=== PATIENT | female | born 1945 | race Caucasian/White ===

== ENCOUNTER 2023-10-10 10:03 | Outpatient (RCR) | payer OTHER, SELFPAY | END 2023-10-10 23:59 | disposition home or self-care (01) | LOC: RPT 10:03 | PROVIDERS: ATTENDING PHYSICIAN Urology; PRIMARYCARE PHYSICIAN Family Medicine | DX: N31.9 Neuromuscular dysfunction of bladder, unspecified (principal); N39.3 Stress incontinence (female) (male); N39.41 Urge incontinence; N30.10 Interstitial cystitis (chronic) without hematuria; Z73.6 Limitation of activities due to disability; R15.9 Full incontinence of feces; R33.9 Retention of urine, unspecified; M62.89 Other specified disorders of muscle | CPT/HCPCS: 97110; 97112; 97530 ==

== ENCOUNTER 2023-11-22 14:11 | Outpatient (RCR) | payer OTHER, SELFPAY | END 2023-11-22 23:59 | disposition home or self-care (01) | LOC: RPT 14:11 | PROVIDERS: ATTENDING PHYSICIAN Urology; PRIMARYCARE PHYSICIAN Family Medicine | DX: N31.9 Neuromuscular dysfunction of bladder, unspecified (principal); N39.3 Stress incontinence (female) (male); N39.41 Urge incontinence; N30.10 Interstitial cystitis (chronic) without hematuria; Z73.6 Limitation of activities due to disability; R15.9 Full incontinence of feces; R33.9 Retention of urine, unspecified; M62.89 Other specified disorders of muscle | CPT/HCPCS: 97530 ==

== ENCOUNTER → 2023-12-23 15:22 | Outpatient (REF) | payer OTHER, SELFPAY | LOC: HWRCS 15:22 | PROVIDERS: ATTENDING PHYSICIAN Family Medicine | DX: R60.0 Localized edema (principal); R06.09 Other forms of dyspnea | CPT/HCPCS: 93306 ==

== ENCOUNTER → 2024-01-02 10:42 | Outpatient (REF) | payer OTHER, SELFPAY ==
[2024-01-02 11:41] LABS: % Basophils 0.8 % (0-2); % Eosinophils 2.8 % (0-6); % Immature Granulocytes 0.1 % (0-0.5); % Lymphocytes 21.3 % (20.5-51.1); Absolute Basophils 0.1 10^3/uL (0-0.2); Absolute Eosinophils 0.2 10^3/uL (0-0.7); Absolute Lymphocytes 1.8 10^3/uL (1.2-3.4); Absolute Monocytes 0.5 10^3/uL (0.1-0.6); Absolute Neutrophils 5.8 10^3/uL (1.4-6.5); Hematocrit 34.9 % (37.0-47.0); Hemoglobin 11.2 g/dL (12.0-16.0); Mean Corp Hgb Conc. 32.1 g/dL (33.0-37.0); Mean Corpuscular Hgb 31.6 pg (27.0-31.0); Mean Corpuscular Volume 98.6 fL (81.0-99.0); Mean Platelet Volume 10.6 fL (7.4-10.4); Nucleated Red Blood Cells % 0 %; Platelet Count 364 10^3/uL (130-400); Red Blood Cell Count 3.54 10^6/uL (4.20-5.40); Red Cell Dist. Width 14.6 % (11.5-14.5); White Blood Cell Count 8.5 10^3/uL (4.8-10.8)
[2024-01-02 12:13] LABS: ALT (SGPT) 23 U/L (0-35); AST (SGOT) 25 U/L (14-36); Albumin 4.6 g/dl (3.5-5.0); Alkaline Phosphatase 51 U/L (38-126); Blood Urea Nitrogen 21 mg/dl (7-17); Calcium 9.3 mg/dl (8.4-10.2); Carbon Dioxide 23 mmol/L (22-30); Chloride 101 mmol/L (98-107); Glucose 96 mg/dl (70-99); Potassium 4.3 mmol/L (3.5-5.1); Sodium 135 mmol/L (135-145); Total Bilirubin 1.1 mg/dl (0.2-1.3); Total Protein 7.5 g/dl (6.3-8.2); eGFR > 60.00
[2024-01-02 12:16] LABS: NT-proBNP 61.7 pg/ml
[2024-01-03 16:10] LABS: Iron 153 ug/dl (37-170)
[2024-01-03 16:20] LABS: Percent Saturation 38 % (20-50); Total Iron Binding Capacity 402 ug/dl (265-497)
[2024-01-03 16:51] LABS: Ferritin 29.2 ng/ml (11.1-264.0)
[2024-01-03 17:23] LABS: Folate 5.4 ng/ml (2.76-20); Vitamin B12 549 pg/ml (239-931)
== END ==
LOC: REG 10:42
PROVIDERS: ATTENDING PHYSICIAN Family Medicine
DX: R60.0 Localized edema (principal); R06.09 Other forms of dyspnea; F43.23 Adjustment disorder with mixed anxiety and depressed mood; R79.89 Other specified abnormal findings of blood chemistry
CPT/HCPCS: 36415; 80053; 82607; 82728; 82746; 83540; 83550; 83880; 85025

== ENCOUNTER → 2024-01-05 13:54 | Outpatient (REF) | payer OTHER, SELFPAY ==
[2024-01-05 18:45] LABS: Urine Albumin Negative (Neg - Trace); Urine Bilirubin Negative (Negative); Urine Character Clear (Clear); Urine Color Yellow; Urine Glucose Negative (Negative); Urine Ketone Negative (Negative); Urine Leukocyte Trace (Negative); Urine Nitrite Negative (Negative); Urine Occult Blood Negative (Negative); Urine Specific Gravity 1.015 (<1.030); Urine Urobilinogen Negative (Neg - 1+)
[2024-01-05 18:52] LABS: Urine Red Blood Cell None Seen /HPF (0-2); Urine Squamous Cell 0-2 /LPF (Few)
== END ==
LOC: OLABPV 13:54
PROVIDERS: ATTENDING PHYSICIAN Internal Medicine Infectious Disease
DX: N39.0 Urinary tract infection, site not specified (principal)
CPT/HCPCS: 81003; 81015; 87086; 87088; 87186

== ENCOUNTER → 2024-02-08 12:58 | Outpatient (REF) | payer OTHER, SELFPAY ==
[2024-02-08 14:00] LABS: Urine Albumin Negative (Neg - Trace); Urine Bilirubin 1+ (Negative); Urine Character Clear (Clear); Urine Glucose Negative (Negative); Urine Ketone Negative (Negative); Urine Leukocyte Negative (Negative); Urine Nitrite Positive (Negative); Urine Occult Blood Negative (Negative); Urine Urobilinogen 1+ (Neg - 1+)
[2024-02-08 14:01] LABS: Urine Color Orange
[2024-02-08 14:28] LABS: Urine Squamous Cell >30 /LPF (Few)
[2024-02-08 14:29] LABS: Urine Bacteria Few (Negative); Urine Red Blood Cell 0-2 /HPF (0-2); Urine White Cell 0-2 /HPF (0-5)
== END ==
LOC: CLAB 12:58
PROVIDERS: ATTENDING PHYSICIAN Internal Medicine Infectious Disease
DX: N39.0 Urinary tract infection, site not specified (principal)
CPT/HCPCS: 81003; 81015; 87086

== ENCOUNTER → 2024-02-27 11:07 | Outpatient (REF) | payer OTHER, SELFPAY ==
[2024-02-27 12:16] LABS: % Basophils 1.1 % (0-2); % Eosinophils 2.7 % (0-6); % Immature Granulocytes 0.3 % (0-0.5); % Lymphocytes 24.5 % (20.5-51.1); % Monocytes 9.3 % (1.7-9.3); % Neutrophils 62.1 % (42.2-75.2); Absolute Basophils 0.1 10^3/uL (0-0.2); Absolute Eosinophils 0.2 10^3/uL (0-0.7); Absolute Lymphocytes 1.6 10^3/uL (1.2-3.4); Absolute Monocytes 0.6 10^3/uL (0.1-0.6); Absolute Neutrophils 4.1 10^3/uL (1.4-6.5); Hemoglobin 11.2 g/dL (12.0-16.0); Mean Corpuscular Hgb 31.2 pg (27.0-31.0); Mean Corpuscular Volume 97.5 fL (81.0-99.0); Mean Platelet Volume 9.9 fL (7.4-10.4); Nucleated Red Blood Cells % 0 %; Platelet Count 406 10^3/uL (130-400); Red Blood Cell Count 3.59 10^6/uL (4.20-5.40); Red Cell Dist. Width 13.7 % (11.5-14.5); White Blood Cell Count 6.6 10^3/uL (4.8-10.8)
[2024-02-27 14:22] LABS: Albumin 4.3 g/dl (3.5-5.0); Blood Urea Nitrogen 17 mg/dl (7-17); Calcium 9.7 mg/dl (8.4-10.2); Carbon Dioxide 26 mmol/L (22-30); Chloride 102 mmol/L (98-107); Glucose 85 mg/dl (70-99); Iron 111 ug/dl (37-170); Phosphorus 4.2 mg/dl (2.5-4.5); Potassium 4.5 mmol/L (3.5-5.1); Sodium 134 mmol/L (135-145); eGFR > 60.00
[2024-02-27 14:31] LABS: Percent Saturation 28 % (20-50); Total Iron Binding Capacity 389 ug/dl (265-497)
[2024-02-27 16:33] LABS: Ferritin 19.2 ng/ml (11.1-264.0)
== END ==
LOC: REG 11:07
PROVIDERS: ATTENDING PHYSICIAN Family Medicine
DX: D64.9 Anemia, unspecified (principal); E87.1 Hypo-osmolality and hyponatremia
CPT/HCPCS: 36415; 80069; 82728; 83540; 83550; 85025

== ENCOUNTER → 2024-03-21 16:28 | Outpatient (REF) | payer OTHER, SELFPAY ==
[2024-03-21 17:18] LABS: Urine Albumin Negative (Neg - Trace); Urine Bilirubin Negative (Negative); Urine Character Clear (Clear); Urine Color Yellow; Urine Glucose Negative (Negative); Urine Ketone Negative (Negative); Urine Leukocyte Negative (Negative); Urine Nitrite Negative (Negative); Urine Occult Blood Negative (Negative); Urine Urobilinogen Negative (Neg - 1+)
== END ==
LOC: OLABPV 16:28
PROVIDERS: ATTENDING PHYSICIAN Internal Medicine Infectious Disease
DX: R30.0 Dysuria (principal)
CPT/HCPCS: 81003

== ENCOUNTER → 2024-04-27 12:09 | Outpatient (REF) | payer OTHER, SELFPAY | LOC: PAVMRI 12:09 | PROVIDERS: ATTENDING PHYSICIAN Specialist; FAMILY PHYSICIAN Family Medicine | DX: G35 Multiple sclerosis (principal) | CPT/HCPCS: 70553; A9575 ==

== ENCOUNTER → 2024-06-06 15:48 | Outpatient (REF) | payer OTHER, SELFPAY ==
[2024-06-06 17:07] LABS: Urine Albumin Negative (Neg - Trace); Urine Bilirubin Negative (Negative); Urine Character Very Cloudy (Clear); Urine Color Yellow; Urine Glucose Negative (Negative); Urine Ketone Negative (Negative); Urine Leukocyte Negative (Negative); Urine Nitrite Negative (Negative); Urine Occult Blood Negative (Negative); Urine Specific Gravity 1.015 (<1.030); Urine Urobilinogen Negative (Neg - 1+)
== END ==
LOC: REG 15:48
PROVIDERS: ATTENDING PHYSICIAN Internal Medicine Infectious Disease
DX: N39.0 Urinary tract infection, site not specified (principal)
CPT/HCPCS: 36415; 81003

== ENCOUNTER → 2024-07-09 06:33 | Day surgery (SDC) | payer OTHER, SELFPAY | LOC: GI 06:33 | PROVIDERS: ATTENDING PHYSICIAN Internal Medicine; FAMILY PHYSICIAN Family Medicine | DX: K63.89 Other specified diseases of intestine (principal); K56.699 Other intestinal obstruction unspecified as to partial versus complete obstruction; K64.9 Unspecified hemorrhoids; D64.9 Anemia, unspecified; K59.00 Constipation, unspecified; R19.5 Other fecal abnormalities; K22.2 Esophageal obstruction; K22.4 Dyskinesia of esophagus; K44.9 Diaphragmatic hernia without obstruction or gangrene; K31.7 Polyp of stomach and duodenum; K31.89 Other diseases of stomach and duodenum; R13.10 Dysphagia, unspecified; Z87.19 Personal history of other diseases of the digestive system; Z98.0 Intestinal bypass and anastomosis status | CPT/HCPCS: 43249; 45380; 43239; 88305; 88342 ==

== ENCOUNTER → 2024-07-10 11:17 | Outpatient (REF) | payer OTHER, SELFPAY ==
[2024-07-10 12:40] LABS: ALT (SGPT) 17 U/L (0-35); AST (SGOT) 26 U/L (14-36); Albumin 4.5 g/dl (3.5-5.0); Alkaline Phosphatase 57 U/L (38-126); Blood Urea Nitrogen 11 mg/dl (7-17); Calcium 9.8 mg/dl (8.4-10.2); Carbon Dioxide 25 mmol/L (22-30); Chloride 103 mmol/L (98-107); Glucose 95 mg/dl (70-99); HDL Cholesterol 73 mg/dl; LDL Cholesterol, Calculated 149 mg/dl; Potassium 4.4 mmol/L (3.5-5.1); Sodium 138 mmol/L (135-145); Total Bilirubin 0.7 mg/dl (0.2-1.3); Total Cholesterol 243 mg/dl (50-199); Total Protein 7.4 g/dl (6.3-8.2); Triglyceride 108 mg/dl (10-149); Very Low Density Lipoprotein 21 mg/dl (0-30); eGFR > 60.00
== END ==
LOC: REG 11:17
PROVIDERS: ATTENDING PHYSICIAN Family Medicine
DX: E78.2 Mixed hyperlipidemia (principal)
CPT/HCPCS: 36415; 80053; 80061

== ENCOUNTER 2024-07-11 14:34 | Emergency (ER) | payer OTHER, SELFPAY ==
[2024-07-11] VITALS (7 sets, daily range): BP systolic 151–185; BP diastolic 78–157; BMI 27.8
--- NOTE | 2024-07-11 15:33 | ED.GENMED ---
History of Present Illness
General
Chief Complaint: Weakness
Source: patient
Exam Limitations: none
Time Seen by Provider: 07/11/24 15:15
Nursing documentation reviewed up to this point in time: agreed with
History of Present Illness
History of Present Illness:
79 yr old female with past medical history of colon resection, abdominal wall abscess, MS hyperlipidemia presents to the ER for evaluation. She had a colonoscopy on Tuesday by Dr. Dwyer . She reports on Tuesday she started to feel nauseous and has
felt very tired and exhausted. She denies any actual vomiting. She has not moved her bowels since. She denies any fevers but has had chills.
Colonoscopy report: Large hemorrhoids were found on perianal exam there was evidence of prior end-to-end ileocolonic anastomosis in the proximal ascending colon biopsies were taken over site of diffuse area of the ileum congestion at the ileocolonic
anastomosis region. In the neoileum 7 cm from the ileocolonic anastomosis contained a benign-appearing intrinsic moderate stenosis that was not transversed.
Past History
Past History
ED Past Medical History: Asthma, GERD, HTN, Hypercholesterolemia and Other (diverticulitis w/ perf, Migraines, MS with neurogenic bladder and chronic UTIs, DVT, Glaucoma. Macular degeneration)
ED Past Surgical History: Appendectomy, Bowel resection (X2), Cholecystectomy and Gynecological (Hysterectomy)
Social History
Tobacco: Former smoker
Alcohol: Occasional
Drug: None
Personal:
Living: with family
Review of Systems
Review of Systems
Allergies reviewed?: Yes
All Other Systems: ROS reviewed and negative except as documented in HPI and ROS
Constitutional: Reports fatigue
EENT: Reports no symptoms
Respiratory: Reports no symptoms
Cardiac: Reports no symptoms
ABD/GI: Reports nausea; Denies abdominal pain, vomiting, diarrhea or constipated
: Reports no symptoms; Denies dysuria, frequency, flank pain, incontinence, difficulty voiding, urgency, bleeding or discharge
Musculoskeletal: Reports no symptoms
Skin: Reports no symptoms
Neurological: Reports no symptoms
Hematologic/Lymphatic: Reports no symptoms
Psychiatric: Reports no symptoms
Phy Exam
General Physical Exam
General Presentation: no apparent distress
General age: appears stated age
General Skin: warm and dry
General Habitus: normal
General Mental: alert
General Hydration: appears well hydrated
Cardiovascular Exam
Cardiovascular Exam: regular rate/rhythm, no murmur and normal peripheral pulses
Pulmonary Exam
Pulmonary Exam: lungs clear and no respiratory distress
Neurological Exam
Neurological Exam: alert and oriented x3
Musculoskeletal Exam
Musculoskeletal Exam: full ROM
Skin Exam
Skin Exam: normal color and warm/dry
Psychiatric Exam
Psychiatric Exam: normal mood/affect
Course
Orders/Labs/Results
Orders:
Orders
07/11/24 15:39
CT Abd/pel W Iv And Oral Contr Urgent
Comment:
Reason For Exam: nausea abd pain s/p colonoscopy
IV Insert/Care/Rem.- Treatment PRN
0.9% Sodium Chloride 1000 ml [Nss] 1,000 ml IV BOLUS
Iohexol [Omnipaque] See Protocol PO NOW STA
Ondansetron Injectable [Zofran] 4 mg IV NOW STA
07/11/24 16:38
COVID-19 Antigen Urgent
Source: Nasal Swab
Complete Blood Count/With Diff Urgent
Comprehensive Metabolic Panel Urgent
Lipase Urgent
07/11/24 18:55
Urinalysis Reflex To Culture Urgent
Date Specimen was Collected: 07/11/24
Time Specimen was Collected: 18:51
Urine Microscopic Reflex Cult Urgent
Urine Culture Urgent
DEN Source: U
Specimen Description:
Date Specimen was Collected: 07/11/24
Time Specimen was Collected: 18:51
Abnormal Lab Results
07/11/24 07/11/24
16:38 18:55
RBC 3.80 L 10^6/uL
(4.20-5.40)
Hgb 11.6 L g/dL
(12.0-16.0)
Hct 34.4 L %
(37.0-47.0)
Glucose 101 H mg/dl
(70-99)
Urine Nitrite (Reflex) Positive A
(Negative)
Leukocyte Esterase Rfl 1+ A
(Negative)
Urine WBC (Reflex) 30-40 A /HPF
(0-5)
Urine Bacteria (Reflex) Many A
(Negative)
07/11/24 16:38
07/11/24 16:38
Vital Signs
Initial and Last Documented VS:
Initial Vital Signs
Temp Pulse Resp BP Pulse Ox
98.0 F 79 18 174/104 96
07/11/24 14:37 07/11/24 14:37 07/11/24 14:37 07/11/24 14:37 07/11/24 14:37
Last Documented Vital Signs
Temp Pulse Resp BP Pulse Ox
98.0 F 79 18 170/157 98
07/11/24 14:37 07/11/24 14:37 07/11/24 14:37 07/11/24 17:00 07/11/24 18:01
MDM/Problems Addressed
Differential Diagnosis Includes:
not limited to: Dehydration anemia viral syndrome less likely perforation as patient is very nontoxic, UTI
MDM/Problems Addressed:
Patient is a 79-year-old female status post colonoscopy on Tuesday complaint of weakness since. She generally describes not feeling well mildly nauseous mild abdominal discomfort however on exam she is in no acute distress she is afebrile with
normal white count hemoglobin stable at 11.6. CAT scan unremarkable. Urinalysis consistent with UTI. she is well appearing and stable for d/c home with outpt keflex and close outpt f/u.
Patient's blood pressure taken at 1801 report states 170/157 however not accurate RN will repeat. pt does have hypertension and is on medication.
Chronic conditions affecting care:
htn
*Radiology
Radiology exam reviewed: radiology read reviewed
*Pulse Oximetry
Patient hypoxic: no
*Critical Care Note
Total Time (30-74mins, 75-104mins- exclusive of procedures): Not Applicable
Data Reviewed
Review of Other/Old Records Reveals: Other (Recent colonoscopy)
ED Attending Note
-
Portions of this chart may have been created with voice recognition software.� Occasional wrong word or��sound alike� substitutions may have occurred due to the inherent limitations of voice recognition software.
Discharge Plan
Departure
Patient Disposition: Home (Routine Discharge)
Date of Disposition: 07/11/24
Time of Disposition: 20:12
Patient with high blood pressure during this ER visit?: Yes
Discharge Problem:
Urinary tract infection
Instructions: Urinary Tract Infection, Adult ED, BLOOD PRESSURE
Prescriptions:
New
cephalexin 500 mg capsule
500 mg PO BID 7 Days Qty: 14 0RF
No Action
Copaxone 20 MG syringe kit
40 mg SQ MOWEFR
Patient Comments:
3x per week
Vyzulta 5 ML drops
1 drp BOTH EYES HS
Patient Comments:
both eyes
valacyclovir 500 MG tablet
500 mg PO DAILYPRN PRN (Reason: cold sores)
acetaminophen [Tylenol Extra Strength] 500 MG tablet
1,000 mg PO Q6HPRN PRN (Reason: mild pain)
ketorolac 1 DROP drops
1 drp BOTH EYES BID
prednisolone acetate 1 DROP drops,suspension
1 drp LEFT EYE 1XD
Patient Comments:
uses in both eyes once every other day in addition
losartan 25 MG tablet
50 mg PO DAILY
atorvastatin 40 mg Tablet
40 mg PO HS
pantoprazole 40 mg Tablet,Delayed Release (Dr/Ec)
40 mg PO DAILY
Myrbetriq 50 mg Tablet Extended Release 24 Hr
50 mg PO DAILY
cholecalciferol (vitamin D3) [Vitamin D3] 25 mcg (1,000 unit) Capsule
25 mcg PO DAILY
dorzolamide 2 % Drops
1 drp OPHTHALMIC (EYE) TID
ciprofloxacin HCl [Cipro] 500 mg tablet
500 mg PO BID 5 Days Qty: 10 0RF
Referrals:
Teresa Avendaño MD [Family Provider] -
Activity Restrictions/Additional Instructions:
As discussed you have a urinary tract infection. You were given the first dose of antibiotic here in the ER. A prescription was sent to your pharmacy to take daily for the next 7 days. Follow-up with your family doctor in the next several days
for reevaluation return if any worsening of symptoms
Interventions
Interventions:
*Risk Screen - Suicide Last Done: 07/11/24 18:03
*General Assessment Last Done: 07/11/24 18:03
*Neglect/Abuse Screening Last Done: 07/11/24 18:03
*ED COVID-19 Vaccine History Last Done: 07/11/24 18:03
Discharge Date and Time
Print Language: AMHARIC
[2024-07-11] MEDS: NSS 1000 IV (16:45)
[2024-07-11 16:47] LABS: % Basophils 1.1 % (0-2); % Eosinophils 2.1 % (0-6); % Immature Granulocytes 0.3 % (0-0.5); % Lymphocytes 23.9 % (20.5-51.1); % Monocytes 7.8 % (1.7-9.3); % Neutrophils 64.8 % (42.2-75.2); Absolute Basophils 0.1 10^3/uL (0-0.2); Absolute Eosinophils 0.2 10^3/uL (0-0.7); Absolute Lymphocytes 1.8 10^3/uL (1.2-3.4); Absolute Monocytes 0.6 10^3/uL (0.1-0.6); Absolute Neutrophils 4.9 10^3/uL (1.4-6.5); Hematocrit 34.4 % (37.0-47.0); Hemoglobin 11.6 g/dL (12.0-16.0); Mean Corp Hgb Conc. 33.7 g/dL (33.0-37.0); Mean Corpuscular Hgb 30.5 pg (27.0-31.0); Mean Corpuscular Volume 90.5 fL (81.0-99.0); Mean Platelet Volume 9.3 fL (7.4-10.4); Nucleated Red Blood Cells % 0 %; Platelet Count 337 10^3/uL (130-400); Red Cell Dist. Width 13.8 % (11.5-14.5); White Blood Cell Count 7.6 10^3/uL (4.8-10.8)
[2024-07-11] MEDS: ZOFRAN 4 MG IV (16:47)
[2024-07-11] MEDS: OMNIPAQUE 50 ML PO (16:47)
[2024-07-11 16:59] LABS: COVID-19 Antigen Negative (Negative)
[2024-07-11 17:08] LABS: ALT (SGPT) 17 U/L (0-35); AST (SGOT) 26 U/L (14-36); Albumin 4.4 g/dl (3.5-5.0); Alkaline Phosphatase 55 U/L (38-126); Blood Urea Nitrogen 13 mg/dl (7-17); Calcium 9.8 mg/dl (8.4-10.2); Carbon Dioxide 25 mmol/L (22-30); Chloride 104 mmol/L (98-107); Estimated Creatinine Clearance 65 ml/min; Glucose 101 mg/dl (70-99); Lipase 165 U/L (23-300); Potassium 4.3 mmol/L (3.5-5.1); Sodium 138 mmol/L (135-145); Total Bilirubin 0.5 mg/dl (0.2-1.3); Total Protein 7.2 g/dl (6.3-8.2); eGFR > 60.00
[2024-07-11 19:10] LABS: Urine Albumin Negative (Neg - Trace); Urine Bilirubin Negative (Negative); Urine Character Slightly Cloudy (Clear); Urine Color Yellow; Urine Glucose Negative (Negative); Urine Ketone Negative (Negative); Urine Leukocyte 1+ (Negative); Urine Nitrite Positive (Negative); Urine Occult Blood Negative (Negative); Urine Urobilinogen Negative (Neg - 1+); Urine pH 6.5 (5.0-9.0)
[2024-07-11 19:21] LABS: Urine Red Blood Cell 0-2 /HPF (0-2); Urine Squamous Cell >30 /LPF (Few)
[2024-07-11 19:22] LABS: Urine Bacteria Many (Negative); Urine White Cell 30-40 /HPF (0-5)
[2024-07-11] MEDS: KEFLEX 500 MG PO (20:19)
--- NOTE | 2024-07-14 13:22 | ED.GENMED ---
History of Present Illness
General
Chief Complaint: Weakness
Time Seen by Provider: 07/11/24 15:15
Past History
Past History
ED Past Medical History: Asthma, GERD, HTN, Hypercholesterolemia and Other (diverticulitis w/ perf, Migraines, MS with neurogenic bladder and chronic UTIs, DVT, Glaucoma. Macular degeneration)
ED Past Surgical History: Appendectomy, Bowel resection (X2), Cholecystectomy and Gynecological (Hysterectomy)
Social History
Tobacco: Former smoker
Alcohol: Occasional
Drug: None
Personal:
Living: with family
Course
Orders/Labs/Results
Orders:
Orders
07/11/24 15:39
CT Abd/pel W Iv And Oral Contr Urgent
Comment:
Reason For Exam: nausea abd pain s/p colonoscopy
IV Insert/Care/Rem.- Treatment PRN
0.9% Sodium Chloride 1000 ml [Nss] 1,000 ml IV BOLUS
Iohexol [Omnipaque] See Protocol PO NOW STA
Ondansetron Injectable [Zofran] 4 mg IV NOW STA
07/11/24 16:38
COVID-19 Antigen Urgent
Source: Nasal Swab
Complete Blood Count/With Diff Urgent
Comprehensive Metabolic Panel Urgent
Lipase Urgent
07/11/24 18:55
Urinalysis Reflex To Culture Urgent
Date Specimen was Collected: 07/11/24
Time Specimen was Collected: 18:51
Urine Microscopic Reflex Cult Urgent
Urine Culture Urgent
[place] Source: U
Specimen Description:
Date Specimen was Collected: 07/11/24
Time Specimen was Collected: 18:51
07/11/24 20:05
Cephalexin Monohydrate [Keflex] 500 mg PO NOW STA
Abnormal Lab Results
07/11/24 07/11/24
16:38 18:55
RBC 3.80 L 10^6/uL
(4.20-5.40)
Hgb 11.6 L g/dL
(12.0-16.0)
Hct 34.4 L %
(37.0-47.0)
Glucose 101 H mg/dl
(70-99)
Urine Nitrite (Reflex) Positive A
(Negative)
Leukocyte Esterase Rfl 1+ A
(Negative)
Urine WBC (Reflex) 30-40 A /HPF
(0-5)
Urine Bacteria (Reflex) Many A
(Negative)
07/11/24 16:38
07/11/24 16:38
Vital Signs
Initial and Last Documented VS:
Initial Vital Signs
Temp Pulse Resp BP Pulse Ox
98.0 F 79 18 174/104 96
07/11/24 14:37 07/11/24 14:37 07/11/24 14:37 07/11/24 14:37 07/11/24 14:37
Last Documented Vital Signs
Temp Pulse Resp BP Pulse Ox
97.9 F 66 17 172/90 98
07/11/24 20:33 07/11/24 20:33 07/11/24 20:33 07/11/24 20:33 07/11/24 20:33
ED Attending Note
-
Portions of this chart may have been created with voice recognition software.� Occasional wrong word or��sound alike� substitutions may have occurred due to the inherent limitations of voice recognition software.
Discharge Plan
Departure
Patient Disposition: Home (Routine Discharge)
Date of Disposition: 07/11/24
Time of Disposition: 20:12
Patient with high blood pressure during this ER visit?: Yes
Discharge Problem:
Urinary tract infection
Instructions: Urinary Tract Infection, Adult ED, BLOOD PRESSURE
Prescriptions:
New
cephalexin 500 mg capsule
500 mg PO BID 7 Days Qty: 14 0RF
No Action
Copaxone 20 MG syringe kit
40 mg SQ MOWEFR
Patient Comments:
3x per week
Vyzulta 5 ML drops
1 drp BOTH EYES HS
Patient Comments:
both eyes
valacyclovir 500 MG tablet
500 mg PO DAILYPRN PRN (Reason: cold sores)
acetaminophen [Tylenol Extra Strength] 500 MG tablet
1,000 mg PO Q6HPRN PRN (Reason: mild pain)
ketorolac 1 DROP drops
1 drp BOTH EYES BID
prednisolone acetate 1 DROP drops,suspension
1 drp LEFT EYE 1XD
Patient Comments:
uses in both eyes once every other day in addition
losartan 25 MG tablet
50 mg PO DAILY
atorvastatin 40 mg Tablet
40 mg PO HS
pantoprazole 40 mg Tablet,Delayed Release (Dr/Ec)
40 mg PO DAILY
Myrbetriq 50 mg Tablet Extended Release 24 Hr
50 mg PO DAILY
cholecalciferol (vitamin D3) [Vitamin D3] 25 mcg (1,000 unit) Capsule
25 mcg PO DAILY
dorzolamide 2 % Drops
1 drp OPHTHALMIC (EYE) TID
ciprofloxacin HCl [Cipro] 500 mg tablet
500 mg PO BID 5 Days Qty: 10 0RF
Referrals:
Teresa Avendaño MD [Family Provider] -
Activity Restrictions/Additional Instructions:
As discussed you have a urinary tract infection. You were given the first dose of antibiotic here in the ER. A prescription was sent to your pharmacy to take daily for the next 7 days. Follow-up with your family doctor in the next several days
for reevaluation return if any worsening of symptoms
Interventions
Interventions:
*Risk Screen - Suicide Last Done: 07/11/24 18:03
*General Assessment Last Done: 07/11/24 18:03
*Neglect/Abuse Screening Last Done: 07/11/24 18:03
ED- Fall Risk Assessment Last Done: 07/11/24 16:32
*ED COVID-19 Vaccine History Last Done: 07/11/24 18:03
*Nursing Disposition Last Done: 07/11/24 20:33
ED- Cardiac Assessment Last Done: 07/11/24 16:32
ED- Neurological Assessment Last Done: 07/11/24 16:32
ED- Pulmonary Assessment Last Done: 07/11/24 16:32
Discharge Date and Time
Discharge Date/Time: 07/11/24 20:34
Print Language: UPPER SORBIAN
== END 2024-07-11 20:34 | disposition home or self-care (01) ==
LOC: EMR 14:34
PROVIDERS: Nurse Practitioner; EMERGENCY PHYSICIAN Emergency Medicine; FAMILY PHYSICIAN Family Medicine
DX: N39.0 Urinary tract infection, site not specified (principal); J45.909 Unspecified asthma, uncomplicated; K21.9 Gastro-esophageal reflux disease without esophagitis; I10 Essential (primary) hypertension; E78.00 Pure hypercholesterolemia, unspecified; H40.9 Unspecified glaucoma; H35.30 Unspecified macular degeneration; K56.699 Other intestinal obstruction unspecified as to partial versus complete obstruction; Z87.891 Personal history of nicotine dependence; Z86.718 Personal history of other venous thrombosis and embolism; Z87.440 Personal history of urinary (tract) infections; Z90.49 Acquired absence of other specified parts of digestive tract; Z90.710 Acquired absence of both cervix and uterus
CPT/HCPCS: 99284; 96374; 96361; 74177; 80053; 81003; 81015; 83690; 85025; 87086; 87088; 87186; 87811; Q9967

== ENCOUNTER → 2024-08-07 12:56 | Outpatient (REF) | payer OTHER, SELFPAY | LOC: MRI 3T 12:56 | PROVIDERS: ATTENDING PHYSICIAN Internal Medicine; FAMILY PHYSICIAN Family Medicine | DX: K56.699 Other intestinal obstruction unspecified as to partial versus complete obstruction (principal) | CPT/HCPCS: 72197; 74183; A9575 ==

== ENCOUNTER → 2024-08-22 10:44 | Outpatient (REF) | payer OTHER, SELFPAY ==
[2024-08-22 12:43] LABS: % Eosinophils 2.7 % (0-6); % Immature Granulocytes 0.3 % (0-0.5); % Lymphocytes 20.4 % (20.5-51.1); % Neutrophils 67.6 % (42.2-75.2); Absolute Basophils 0.1 10^3/uL (0-0.2); Absolute Eosinophils 0.2 10^3/uL (0-0.7); Absolute Lymphocytes 1.4 10^3/uL (1.2-3.4); Absolute Monocytes 0.6 10^3/uL (0.1-0.6); Absolute Neutrophils 4.7 10^3/uL (1.4-6.5); Hematocrit 35.2 % (37.0-47.0); Hemoglobin 11.2 g/dL (12.0-16.0); Mean Corp Hgb Conc. 31.8 g/dL (33.0-37.0); Mean Corpuscular Hgb 29.3 pg (27.0-31.0); Mean Corpuscular Volume 92.1 fL (81.0-99.0); Mean Platelet Volume 9.1 fL (7.4-10.4); Nucleated Red Blood Cells % 0 %; Platelet Count 463 10^3/uL (130-400); Red Blood Cell Count 3.82 10^6/uL (4.20-5.40); Red Cell Dist. Width 14.1 % (11.5-14.5)
[2024-08-22 13:54] LABS: Ferritin 19.5 ng/ml (11.1-264.0)
[2024-08-22 14:07] LABS: Vitamin B12 665 pg/ml (239-931)
== END ==
LOC: REG 10:44
PROVIDERS: ATTENDING PHYSICIAN Internal Medicine; FAMILY PHYSICIAN Family Medicine
DX: D50.8 Other iron deficiency anemias (principal)
CPT/HCPCS: 36415; 82607; 82728; 85025

== ENCOUNTER → 2024-08-29 13:37 | Outpatient (REF) | payer OTHER, SELFPAY ==
[2024-08-29 14:24] LABS: Iron 145 ug/dl (37-170)
[2024-08-29 14:33] LABS: Percent Saturation 34 % (20-50); Total Iron Binding Capacity 426 ug/dl (265-497)
== END ==
LOC: REG 13:37
PROVIDERS: ATTENDING PHYSICIAN Internal Medicine; FAMILY PHYSICIAN Family Medicine
DX: D50.9 Iron deficiency anemia, unspecified (principal)
CPT/HCPCS: 36415; 83540; 83550

== ENCOUNTER 2024-09-25 08:55 | Outpatient (RCR) | payer OTHER, SELFPAY ==
[2024-09-11 11:34] VITALS: BP 142/61
[2024-09-11] MEDS: VENOFER 110 MG IV (11:55)
[2024-09-11 13:00] VITALS: BP 139/61
[2024-09-18 11:30] VITALS: BP 150/74
[2024-09-18] MEDS: VENOFER 110 MG IV (11:47)
[2024-09-18 12:54] VITALS: BP 127/56
[2024-09-25 09:36] VITALS: BP 119/55
[2024-09-25] MEDS: VENOFER 110 MG IV (09:51)
[2024-09-25 11:15] VITALS: BP 109/44
== END 2024-09-26 08:26 | disposition home or self-care (01) ==
LOC: OID 08:55
PROVIDERS: ATTENDING PHYSICIAN Internal Medicine; FAMILY PHYSICIAN Family Medicine
DX: D50.9 Iron deficiency anemia, unspecified (principal); K56.699 Other intestinal obstruction unspecified as to partial versus complete obstruction; G35 Multiple sclerosis
CPT/HCPCS: 96365; J1756

== ENCOUNTER → 2024-10-02 16:07 | Outpatient (REF) | payer OTHER, SELFPAY ==
[2024-10-02 16:27] LABS: Urine Albumin Negative (Neg - Trace); Urine Bilirubin Negative (Negative); Urine Character Clear (Clear); Urine Color Yellow; Urine Glucose Negative (Negative); Urine Ketone Negative (Negative); Urine Leukocyte Negative (Negative); Urine Nitrite Negative (Negative); Urine Occult Blood Negative (Negative); Urine Urobilinogen Negative (Neg - 1+)
== END ==
LOC: REG 16:07
PROVIDERS: ATTENDING PHYSICIAN Obstetrics & Gynecology; FAMILY PHYSICIAN Family Medicine
DX: N39.0 Urinary tract infection, site not specified (principal)
CPT/HCPCS: 81003; 87086

== ENCOUNTER 2024-10-09 11:24 | Outpatient (RCR) | payer OTHER, SELFPAY ==
[2024-10-02 11:44] VITALS: BP 150/70
[2024-10-02] MEDS: VENOFER 110 MG IV (12:00)
[2024-10-02 13:18] VITALS: BP 125/58
[2024-10-09 11:45] VITALS: BP 151/81
[2024-10-09] MEDS: VENOFER 110 MG IV (12:07)
[2024-10-09 13:15] VITALS: BP 141/62
== END 2024-10-10 10:25 | disposition home or self-care (01) ==
LOC: OID 11:24
PROVIDERS: ATTENDING PHYSICIAN Internal Medicine; FAMILY PHYSICIAN Family Medicine
DX: D50.9 Iron deficiency anemia, unspecified (principal); K56.699 Other intestinal obstruction unspecified as to partial versus complete obstruction; G35 Multiple sclerosis
CPT/HCPCS: 96365; J1756

== ENCOUNTER → 2024-11-16 11:23 | Outpatient (REF) | payer OTHER, SELFPAY ==
[2024-11-16 13:01] LABS: Urine Albumin Negative (Neg - Trace); Urine Bilirubin Negative (Negative); Urine Character Clear (Clear); Urine Color Yellow; Urine Glucose Negative (Negative); Urine Ketone Negative (Negative); Urine Leukocyte Negative (Negative); Urine Nitrite Negative (Negative); Urine Occult Blood Negative (Negative); Urine Urobilinogen Negative (Neg - 1+)
== END ==
LOC: REG 11:23
PROVIDERS: ATTENDING PHYSICIAN Nurse Practitioner; FAMILY PHYSICIAN Family Medicine
DX: N39.0 Urinary tract infection, site not specified (principal)
CPT/HCPCS: 81003; 87086

== ENCOUNTER → 2024-12-07 10:23 | Outpatient (REF) | payer OTHER, SELFPAY ==
[2024-12-07 11:14] LABS: % Eosinophils 2.9 % (0-6); % Immature Granulocytes 0.1 % (0-0.5); % Monocytes 7.7 % (1.7-9.3); % Neutrophils 67.3 % (42.2-75.2); Absolute Basophils 0.1 10^3/uL (0-0.2); Absolute Eosinophils 0.2 10^3/uL (0-0.7); Absolute Lymphocytes 1.5 10^3/uL (1.2-3.4); Absolute Monocytes 0.5 10^3/uL (0.1-0.6); Absolute Neutrophils 4.6 10^3/uL (1.4-6.5); Hematocrit 34.9 % (37.0-47.0); Hemoglobin 11.8 g/dL (12.0-16.0); Mean Corp Hgb Conc. 33.8 g/dL (33.0-37.0); Mean Corpuscular Hgb 31.9 pg (27.0-31.0); Mean Corpuscular Volume 94.3 fL (81.0-99.0); Mean Platelet Volume 9.8 fL (7.4-10.4); Nucleated Red Blood Cells % 0 %; Platelet Count 305 10^3/uL (130-400); Red Cell Dist. Width 12.8 % (11.5-14.5); White Blood Cell Count 6.9 10^3/uL (4.8-10.8)
[2024-12-07 11:45] LABS: ALT (SGPT) 21 U/L (0-35); AST (SGOT) 22 U/L (14-36); Albumin 4.9 g/dl (3.5-5.0); Alkaline Phosphatase 51 U/L (38-126); Blood Urea Nitrogen 17 mg/dl (7-17); Calcium 9.9 mg/dl (8.4-10.2); Carbon Dioxide 27 mmol/L (22-30); Chloride 99 mmol/L (98-107); Glucose 97 mg/dl (70-99); HDL Cholesterol 71 mg/dl; Iron 173 ug/dl (37-170); LDL Cholesterol, Calculated 72 mg/dl; Potassium 4.6 mmol/L (3.5-5.1); Sodium 135 mmol/L (135-145); Total Bilirubin 1.1 mg/dl (0.2-1.3); Total Cholesterol 161 mg/dl (50-199); Total Protein 7.6 g/dl (6.3-8.2); Triglyceride 91 mg/dl (10-149); Very Low Density Lipoprotein 18 mg/dl (0-30); eGFR > 60.00
[2024-12-07 11:56] LABS: Percent Saturation 53 % (20-50); Total Iron Binding Capacity 321 ug/dl (265-497)
[2024-12-07 12:18] LABS: TSH Reflex To Free T4 1.27 uIU/ml (0.47-4.68)
== END ==
LOC: REG 10:23
PROVIDERS: ATTENDING PHYSICIAN Family Medicine
DX: E78.2 Mixed hyperlipidemia (principal); D64.9 Anemia, unspecified; I10 Essential (primary) hypertension; D50.8 Other iron deficiency anemias
CPT/HCPCS: 36415; 80053; 80061; 82728; 83540; 83550; 84443; 85025

== ENCOUNTER → 2024-12-26 16:01 | Outpatient (REF) | payer OTHER, SELFPAY | LOC: WDC 16:01 | PROVIDERS: ATTENDING PHYSICIAN Family Medicine | DX: Z12.31 Encounter for screening mammogram for malignant neoplasm of breast (principal) | CPT/HCPCS: 77063; 77067 ==

== ENCOUNTER → 2025-03-12 08:00 | Outpatient (REF) | payer OTHER, SELFPAY ==
[2025-03-12 13:29] LABS: Urine Albumin Negative (Neg - Trace); Urine Bilirubin Negative (Negative); Urine Character Clear (Clear); Urine Color Yellow; Urine Glucose Negative (Negative); Urine Ketone Negative (Negative); Urine Leukocyte 1+ (Negative); Urine Nitrite Positive (Negative); Urine Occult Blood Negative (Negative); Urine Urobilinogen 1+ (Neg - 1+); Urine pH 6.5 (5.0-9.0)
[2025-03-12 14:53] LABS: Urine Amorphous Seen; Urine Red Blood Cell 0-2 /HPF (0-2); Urine Squamous Cell 0-2 /LPF (Few)
[2025-03-12 14:54] LABS: Urine Bacteria Many (Negative)
== END ==
LOC: OLABPV 08:00
PROVIDERS: ATTENDING PHYSICIAN Internal Medicine
DX: R30.0 Dysuria (principal)
CPT/HCPCS: 81003; 81015; 87077; 87086; 87186

== ENCOUNTER → 2025-03-26 09:10 | Outpatient (REF) | payer OTHER, SELFPAY ==
[2025-03-26 11:46] LABS: % Basophils 1.7 % (0-2); % Eosinophils 3.6 % (0-6); % Immature Granulocytes 0.2 % (0-0.5); % Lymphocytes 34.7 % (20.5-51.1); % Monocytes 10.4 % (1.7-9.3); % Neutrophils 49.4 % (42.2-75.2); Absolute Basophils 0.1 10^3/uL (0-0.2); Absolute Eosinophils 0.2 10^3/uL (0-0.7); Absolute Lymphocytes 2.1 10^3/uL (1.2-3.4); Absolute Monocytes 0.6 10^3/uL (0.1-0.6); Hematocrit 35.3 % (37.0-47.0); Hemoglobin 12.1 g/dL (12.0-16.0); Mean Corp Hgb Conc. 34.3 g/dL (33.0-37.0); Mean Corpuscular Hgb 31.9 pg (27.0-31.0); Mean Corpuscular Volume 93.1 fL (81.0-99.0); Mean Platelet Volume 10.3 fL (7.4-10.4); Nucleated Red Blood Cells % 0 %; Platelet Count 326 10^3/uL (130-400); Red Blood Cell Count 3.79 10^6/uL (4.20-5.40); Red Cell Dist. Width 12.2 % (11.5-14.5); White Blood Cell Count 6.1 10^3/uL (4.8-10.8)
[2025-03-26 12:10] LABS: HDL Cholesterol 69 mg/dl; Iron 133 ug/dl (37-170); LDL Cholesterol, Calculated 163 mg/dl; Total Cholesterol 251 mg/dl (50-199); Triglyceride 95 mg/dl (10-149); Very Low Density Lipoprotein 19 mg/dl (0-30)
[2025-03-26 12:16] LABS: Erythrocyte Sed Rate 4 mm/hour (0-20)
[2025-03-26 12:20] LABS: Percent Saturation 38 % (20-50); Total Iron Binding Capacity 344 ug/dl (265-497)
[2025-03-26 12:25] LABS: Vitamin D, 25-OH*** 26.5 ng/mL (30-80)
[2025-03-26 12:27] LABS: Urine Albumin Negative (Neg - Trace); Urine Bilirubin Negative (Negative); Urine Character Clear (Clear); Urine Color Yellow; Urine Glucose Negative (Negative); Urine Ketone Negative (Negative); Urine Leukocyte Negative (Negative); Urine Nitrite Positive (Negative); Urine Occult Blood Negative (Negative); Urine Urobilinogen Negative (Neg - 1+)
[2025-03-26 14:43] LABS: Urine Amorphous Seen; Urine Bacteria Moderate (Negative); Urine Red Blood Cell 0-2 /HPF (0-2); Urine White Cell 0-2 /HPF (0-5)
== END ==
LOC: OLABPV 09:10
PROVIDERS: ATTENDING PHYSICIAN Internal Medicine Geriatric Medicine
DX: Z76.89 Persons encountering health services in other specified circumstances (principal); K21.9 Gastro-esophageal reflux disease without esophagitis; I10 Essential (primary) hypertension; M81.0 Age-related osteoporosis without current pathological fracture; G35 Multiple sclerosis; E78.5 Hyperlipidemia, unspecified; K58.2 Mixed irritable bowel syndrome; D64.9 Anemia, unspecified; Z13.31 Encounter for screening for depression
CPT/HCPCS: 36415; 80061; 81003; 81015; 82306; 83540; 83550; 85025; 85652

== ENCOUNTER → 2025-04-11 13:07 | Outpatient (REF) | payer OTHER, SELFPAY ==
[2025-04-11 14:11] LABS: Urine Albumin 1+ (Neg - Trace); Urine Bilirubin 1+ (Negative); Urine Character Clear (Clear); Urine Color Yellow; Urine Glucose Negative (Negative); Urine Ketone Negative (Negative); Urine Leukocyte 1+ (Negative); Urine Nitrite Positive (Negative); Urine Occult Blood 1+ (Negative); Urine Urobilinogen 1+ (Neg - 1+)
[2025-04-11 14:30] LABS: % Basophils 0.6 % (0-2); % Eosinophils 2.1 % (0-6); % Immature Granulocytes 0.2 % (0-0.5); % Lymphocytes 25.8 % (20.5-51.1); % Monocytes 9.5 % (1.7-9.3); % Neutrophils 61.8 % (42.2-75.2); Absolute Eosinophils 0.1 10^3/uL (0-0.7); Absolute Lymphocytes 1.6 10^3/uL (1.2-3.4); Absolute Monocytes 0.6 10^3/uL (0.1-0.6); Absolute Neutrophils 3.9 10^3/uL (1.4-6.5); Hematocrit 37.9 % (37.0-47.0); Hemoglobin 12.9 g/dL (12.0-16.0); Mean Corpuscular Hgb 31.9 pg (27.0-31.0); Mean Corpuscular Volume 93.8 fL (81.0-99.0); Mean Platelet Volume 9.1 fL (7.4-10.4); Nucleated Red Blood Cells % 0 %; Platelet Count 366 10^3/uL (130-400); Red Blood Cell Count 4.04 10^6/uL (4.20-5.40); Red Cell Dist. Width 12.6 % (11.5-14.5); White Blood Cell Count 6.2 10^3/uL (4.8-10.8)
[2025-04-11 14:33] LABS: Urine Squamous Cell >30 /LPF (Few)
[2025-04-11 14:38] LABS: Urine Bacteria Moderate (Negative)
[2025-04-11 15:04] LABS: ALT (SGPT) 22 U/L (0-35); AST (SGOT) 22 U/L (14-36); Albumin 5.1 g/dl (3.5-5.0); Alkaline Phosphatase 49 U/L (38-126); Blood Urea Nitrogen 14 mg/dl (7-17); Carbon Dioxide 26 mmol/L (22-30); Chloride 103 mmol/L (98-107); Glucose 96 mg/dl (70-99); Lipase 105 U/L (23-300); Potassium 4.7 mmol/L (3.5-5.1); Sodium 137 mmol/L (135-145); Total Bilirubin 0.8 mg/dl (0.2-1.3); Total Protein 8.7 g/dl (6.3-8.2); eGFR > 60.00
== END ==
LOC: REG 13:07
PROVIDERS: ATTENDING PHYSICIAN Nurse Practitioner Primary Care
DX: R10.30 Lower abdominal pain, unspecified (principal); K56.699 Other intestinal obstruction unspecified as to partial versus complete obstruction; Z90.49 Acquired absence of other specified parts of digestive tract
CPT/HCPCS: 36415; 80053; 81003; 81015; 83690; 85025; 87086

== ENCOUNTER → 2025-04-12 16:41 | Outpatient (REF) | payer OTHER, SELFPAY | LOC: RAD 16:41 | PROVIDERS: ATTENDING PHYSICIAN Nurse Practitioner Primary Care | DX: R10.30 Lower abdominal pain, unspecified (principal); K56.699 Other intestinal obstruction unspecified as to partial versus complete obstruction; Z90.49 Acquired absence of other specified parts of digestive tract | CPT/HCPCS: 74177; Q9967 ==

== ENCOUNTER 2025-05-27 11:19 | Emergency (ER) | payer OTHER, SELFPAY ==
[2025-05-27 11:28] VITALS: BP 165/60
[2025-05-27 12:24] LABS: Hematocrit 36.6 % (37.0-47.0); Hemoglobin 12.1 g/dL (12.0-16.0); Mean Corp Hgb Conc. 33.1 g/dL (33.0-37.0); Mean Corpuscular Volume 95.6 fL (81.0-99.0); Nucleated Red Blood Cells % 0 %; Platelet Count 309 10^3/uL (130-400); Red Cell Dist. Width 13.4 % (11.5-14.5)
[2025-05-27 12:31] LABS: ALT (SGPT) 17 U/L (0-35); AST (SGOT) 20 U/L (14-36); Albumin 4.6 g/dl (3.5-5.0); Alkaline Phosphatase 42 U/L (38-126); Blood Urea Nitrogen 12 mg/dl (7-17); Calcium 9.8 mg/dl (8.4-10.2); Carbon Dioxide 25 mmol/L (22-30); Chloride 103 mmol/L (98-107); Glucose 128 mg/dl (70-99); Potassium 4.8 mmol/L (3.5-5.1); Sodium 135 mmol/L (135-145); Total Protein 7.9 g/dl (6.3-8.2); eGFR > 60.00
[2025-05-27 13:11] VITALS: BMI 23.0
[2025-05-27 13:12] VITALS: BP 160/80
[2025-05-27 13:18] VITALS: BP 160/80
--- NOTE | 2025-05-27 13:42 | ED.GENMED ---
History of Present Illness
General
Chief Complaint: Fainting Sensation
Source: patient and spouse
Exam Limitations: none
Time Seen by Provider: 05/27/25 13:37
Nursing documentation reviewed up to this point in time: agreed with
History of Present Illness
History of Present Illness:
Note:
CHIEF COMPLAINT(S)
Fall in the bathroom, shoulder and neck pain
HISTORY OF PRESENT ILLNESS
The patient is a 79-year-old female who experienced a fall in the bathroom. According to the patient, she was attempting to urinate when she suddenly felt light-headed and fell off the toilet. She reports being unable to recall any details of the
fall but found herself on the ground, unable to move or pull herself up despite the presence of railings. Her assisted her to a chair. She describes significant pain in her right shoulder and neck following the incident. The pain persists,
particularly upon pressure or movement. She also reports a past event two weeks ago where she felt woozy and blacked out in a hot environment. She describes feeling weak shortly after the fall and reported hitting her shoulder and possibly injuring
her lip, which she discovered the next morning.
The patient has an ongoing mild cough following a presumed pneumonia diagnosis, for which she completed a seven-day course of azithromycin and augmentin after visiting an urgent care facility. She denies having a fever at present but feels cold. She
does not regularly see a well logger.
ADDITIONAL HISTORY OBTAINED FROM SOURCES OTHER THAN THE PATIENT
The patients was present at the time of the incident and helped her to rise by bringing a walker. He was unaware of the situation until he entered the bathroom.
SOCIAL DETERMINANTS AFFECTING HEALTH
The patients need for assistance in the bathroom was met by her , suggesting possible dependence or physical limitations affecting daily activities.
REVIEW OF SYSTEMS
- General: Reports mild cough, denies fever but feels cold.
- Cardiovascular: No murmur or distress noted previously.
- Musculoskeletal: Reports pain in the right shoulder and neck after the fall. Describes limited mobility in the right shoulder.
- Neurological: Describes an inability to move after the fall and a previous blackout episode.
PHYSICAL EXAM
- General: Well-developed, well-nourished, afebrile, in no acute distress.
- Musculoskeletal: Limited range of motion in the right shoulder; cervical spine tenderness.
- Neurological: Pupils equal, round, and reactive to light; extraocular muscles intact.
- Respiratory: Good air entry bilaterally, no respiratory distress.
- Cardiovascular: Heart sounds S1, S2; no S3, S4, or murmurs.
Nursing notes reviewed and vital signs reviewed.
PROBLEM LIST
Acute Problems:
- Fall with possible traumatic injury to the shoulder and neck
- Blackout episodes
- Mild cough post-pneumonia treatment
Chronic Problems:
- Possible balance or neurological issues (given recurrent blackout)
PLAN
- Perform computed tomography of the head to rule out intracranial injury post-fall.
- Perform computed tomography of the neck to identify possible fracture.
- Obtain an X-ray of the right shoulder to assess structural integrity and rule out dislocation or fracture.
- Complete blood work including troponin levels to evaluate cardiac function post-incident.
- Arrange for physical therapy evaluation to assist with recovery and prevention.
- Monitor symptoms and reevaluate if additional interventions or referrals to specialists such as a well logger are needed.
DIFFERENTIAL DIAGNOSIS
The Differential Diagnosis includes, in no particular order and is not limited to:
1. Syncope
2. Orthostatic hypotension
3. Dehydration-induced dizziness
4. Vasovagal response
5. Cervical spine injury
6. Shoulder dislocation or fracture
7. Myocardial infarction
8. Concussion
9. Neurological deficit secondary to stroke
10. Anxiety or panic attack causing syncope
EKG
My independent EKG interpretation is:
- Time of EK AM, May 27, 2025
- Rhythm: Normal sinus rhythm
- Heart Rate: 75 bpm
- DC Interval: Normal
- QRS Duration: Normal
- QT Interval: Normal
- ST Segments: Normal
- No ischemia
- Comparison: No change compared to EKG from June 26, 2020
CARE-UPDATE
05/27/25 - 15:59
The patient currently reports feeling okay but is experiencing tiredness. There are no reports of chest pain. Recent imaging studies, including a CT of the head and cervical spine, show no new findings. The right shoulder x-ray also shows no new
findings. The patient is diagnosed with a right shoulder strain/sprain with a concern for a potential rotator cuff injury. Planning for continued involvement with orthopedics and cardiology includes the potential use of a Holter monitor. Discharge
is not planned at this time.
Disposition:
SUMMARY OF ENCOUNTER
The patient, a 79-year-old female, presented to the emergency department following a fall in the bathroom, experiencing right shoulder and neck pain. She reports light-headedness before the fall and a previous blackout incident in a hot environment
two weeks ago. Following the fall, she felt weak and noted limited mobility in her right shoulder and neck. CT imaging of the head and cervical spine, along with a right shoulder X-ray, showed no new lesions or fractures, leading to a diagnosis of
right shoulder strain/sprain. Cardiac function was assessed, with lab tests showing no acute abnormalities. Continuous involvement and evaluation by orthopedics and cardiology for a potential rotator cuff injury was planned, and the use of a Holter
monitor was considered.
DISPOSITION
Discharge not planned at this time.
ASSESSMENT
The patient is assessed primarily with a right shoulder strain/sprain, syncope, and a resolved mild cough post-pneumonia treatment. Concerns extend to potential rotator cuff injury and recurrent blackout episodes with an undetermined cause.
REASSESSMENT
Recent imaging studies, including a CT of the head and cervical spine, show no new findings. The right shoulder X-ray also shows no new findings.
PLAN
The plan includes continued management and evaluation of potential rotator cuff injury by orthopedics, with cardiology follow-up for syncope episodes. A Holter monitor may be used for continued cardiac assessment.
INDEPENDENT REVIEW OF LABS AND INTERPRETATION OF TESTS
- My independent interpretation of the EKG indicates normal sinus rhythm with no change from previous EKG on June 26, 2020.
- My independent interpretation of the CT of the head and cervical spine: No new findings.
- My independent interpretation of the X-ray of the right shoulder: No new findings.
PATIENT EDUCATION AND COUNSELING
The patient was instructed on returning precautions and advised to follow up with cardiology, orthopedics, and primary care.
FOLLOW-UP INSTRUCTIONS
Follow-up with cardiology, orthopedics, and primary care as advised.
MEDICATION RECONCILIATION
No new medications were prescribed at this encounter, as current treatment involved evaluation and continued monitoring.
MEDICAL DECISION MAKING
- Number and Complexity of Problems Addressed: Chronic conditions affecting care include right shoulder strain/sprain post-fall with potential rotator cuff injury, syncope, and past mild cough post-pneumonia treatment. Differential Diagnosis
includes syncope, orthostatic hypotension, dehydration-induced dizziness, vasovagal response, cervical spine injury, shoulder dislocation or fracture, myocardial infarction, concussion, neurological deficit secondary to stroke, and anxiety or panic
attack causing syncope.
- Data:
- Category 1: My independent interpretation of the EKG and recent CT head and neck and right shoulder X-ray were considered. External record reviewed: recent imaging and EKG comparisons were noted.
- Category 2: Clinical information was obtained from an independent historian, the patients , who provided details on the fall incident.
- Risk: Prescription medication was considered, but not prescribed at this time. Care significantly affected by social determinants, including the patients dependence on assistance for daily activities.
DIAGNOSIS
1. Syncope (R55)
2. Right Shoulder Strain/Sprain (S43.4)
3. Cervicalgia (M54.2)
Past History
Past History
ED Past Medical History: Asthma, GERD, HTN, Hypercholesterolemia and Other (diverticulitis w/ perf, Migraines, MS with neurogenic bladder and chronic UTIs, DVT, Glaucoma. Macular degeneration)
ED Past Surgical History: Appendectomy, Bowel resection (X2), Cholecystectomy and Gynecological (Hysterectomy)
Social History
Tobacco: Former smoker
Alcohol: Occasional
Drug: None
Personal:
Living: with family
Phy Exam
Physical Exam
Physical Exam:
.
Course
Orders/Labs/Results
Orders:
Orders
05/27/25 11:24
ECG [Electrocardiogram (*1)] Urgent
Reason for Study: Vertigo / Dizzy
EKG- Treatment ONCE
05/27/25 11:46
Complete Blood Count/With Diff Urgent
Comprehensive Metabolic Panel Urgent
05/27/25 13:25
CR Shoulder - Right Min 2 View Urgent
Comment:
Reason For Exam: pain post fall
05/27/25 13:54
CT Cervical Spine W/o Iv Contr Urgent
Comment:
Reason For Exam: neck pain after fall
CT Head W/o Iv Contrast Urgent
Comment:
Reason For Exam: syncope, fall
05/27/25 14:18
Troponin I Urgent
Urinalysis Reflex To Culture Urgent
Date Specimen was Collected: 05/27/25
Time Specimen was Collected: 14:06
Abnormal Lab Results
05/27/25
11:46
RBC 3.83 L 10^6/uL
(4.20-5.40)
Hct 36.6 L %
(37.0-47.0)
MCH 31.6 H pg
(27.0-31.0)
Glucose 128 H mg/dl
(70-99)
05/27/25 11:46
05/27/25 11:46
Vital Signs
Initial and Last Documented VS:
Initial Vital Signs
Temp Pulse Resp BP Pulse Ox
98.0 F 81 16 165/60 98
05/27/25 11:28 05/27/25 11:28 05/27/25 11:28 05/27/25 11:28 05/27/25 11:28
Last Documented Vital Signs
Temp Pulse Resp BP Pulse Ox
97.6 F 64 14 160/80 95
05/27/25 13:18 05/27/25 13:18 05/27/25 13:18 05/27/25 13:18 05/27/25 13:44
*Pulse Oximetry
SaO2: 95
Oxygen Mode of Delivery: Room air
Patient hypoxic: no
*Critical Care Note
Total Time (30-74mins, 75-104mins- exclusive of procedures): Not Applicable
ED Attending Note
-
Portions of this chart may have been created with voice recognition software.� Occasional wrong word or��sound alike� substitutions may have occurred due to the inherent limitations of voice recognition software.
Discharge Plan
Departure
Patient Disposition: Home (Routine Discharge)
Date of Disposition: 05/27/25
Time of Disposition: 16:00
Patient with high blood pressure during this ER visit?: Yes
Condition: Good
Discharge Problem:
Syncope, Shoulder sprain
Instructions: Rotator cuff injury, Syncope (Fainting) (DC), Shoulder Sprain ED, BLOOD PRESSURE
Prescriptions:
No Action
valacyclovir 500 MG tablet
500 mg PO DAILYPRN PRN (Reason: cold sores)
acetaminophen [Tylenol Extra Strength] 500 MG tablet
1,000 mg PO Q6HPRN PRN (Reason: mild pain)
losartan 25 MG tablet
50 mg PO DAILY
pantoprazole 40 mg Tablet,Delayed Release (Dr/Ec)
40 mg PO DAILY
mirabegron [Myrbetriq] 50 mg Tablet Extended Release 24 Hr
50 mg PO DAILY
cholecalciferol (vitamin D3) [Vitamin D3] 25 mcg (1,000 unit) Capsule
25 mcg PO DAILY
methenamine hippurate 1 gram Tablet
1 g PO BID
alprazolam 0.25 mg Tablet
0.25 mg PO DAILY PRN (Reason: anxiety)
ascorbic acid (vitamin C) [Vitamin C] 500 mg Tablet
500 mg PO DAILY
hydroxyzine HCl 10 mg Tablet
30 mg PO HS
dicyclomine [Bentyl] 10 mg Capsule
20 mg PO TID PRN (Reason: cramping)
alfuzosin 10 mg Tablet Extended Release 24 Hr
10 mg PO DAILY
Centrum Silver 0.4 mg-300 mcg- 250 mcg Tablet
1 tab PO DAILY
pravastatin 10 mg Tablet
30 mg PO HS
cyanocobalamin (vitamin B-12) [Vitamin B-12] 2,500 mcg Tablet, Sublingual
2,500 mcg PO DAILY
phenazopyridine 200 mg Tablet
200 mg PO TID
Theracran 650 mg Capsule
650 mg PO DAILY
Trulance 3 mg Tablet
3 mg PO PRN PRN (Reason: CONSTIPATION)
Referrals:
Lakhwinder Fung MD [Active, Orthopedics] - Call in 1-3 days for appt
Chip Bradford MD [Active, Cardiology] - Call in 1-3 days for appt
Darion Cuba MD [Family Provider, Internal Medicine]
Interventions
Interventions:
*Risk Screen - Suicide Last Done: 05/27/25 11:28
*General Assessment Last Done: 05/27/25 13:18
*Neglect/Abuse Screening Last Done: 05/27/25 11:28
*ED- Fall Risk Assessment Last Done: 05/27/25 13:18
ED- Cardiac Assessment Last Done: 05/27/25 13:18
ED- Neurological Assessment Last Done: 05/27/25 13:18
Discharge Date and Time
Print Language: LIBERIAN
[2025-05-27 14:17] VITALS: BP 149/67
[2025-05-27 14:36] LABS: Urine Character Clear (Clear)
[2025-05-27 15:02] LABS: Troponin I 0.018 ng/ml
[2025-05-27 16:04] VITALS: BP 131/85
== END 2025-05-27 16:12 | disposition home or self-care (01) ==
LOC: EMR 11:19
PROVIDERS: Emergency Medicine; EMERGENCY PHYSICIAN Emergency Medicine; FAMILY PHYSICIAN Internal Medicine Geriatric Medicine
DX: R55 Syncope and collapse (principal); S43.401A Unspecified sprain of right shoulder joint, initial encounter; M54.2 Cervicalgia; W18.11XA Fall from or off toilet without subsequent striking against object, initial encounter; J45.909 Unspecified asthma, uncomplicated; E78.00 Pure hypercholesterolemia, unspecified; I10 Essential (primary) hypertension; G35 Multiple sclerosis; Z87.891 Personal history of nicotine dependence
CPT/HCPCS: 99285; 70450; 72125; 73030; 80053; 81003; 84484; 85025; 93005

== ENCOUNTER 2025-06-25 20:33 | Emergency (ER) | payer OTHER, SELFPAY ==
[2025-06-25 20:42] VITALS: BP 137/75
[2025-06-25 21:20] VITALS: BMI 25.8
--- NOTE | 2025-06-25 21:33 | ED.GENMED ---
History of Present Illness
General
Chief Complaint: Fall
Source: patient
Time Seen by Provider: 06/25/25 21:22
History of Present Illness
History of Present Illness:
80-year-old female presents to the emergency room for evaluation after having a trip and fall. Patient was taking out her trash when she fell. She struck her left forehead. She has pain in her forehead as well as her neck. Also complaining of
left hand and wrist pain and left knee pain. She cannot recall when her last tetanus shot was. She does have a bit of a headache and feels dizzy. She was feeling nauseous earlier. Nausea is better at this point. No weakness numbness or tingling.
Past History
Past History
ED Past Medical History: Asthma, GERD, HTN, Hypercholesterolemia and Other (diverticulitis w/ perf, Migraines, MS with neurogenic bladder and chronic UTIs, DVT, Glaucoma. Macular degeneration)
ED Past Surgical History: Appendectomy, Bowel resection (X2), Cholecystectomy and Gynecological (Hysterectomy)
Social History
Tobacco: Former smoker
Alcohol: Occasional
Drug: None
Personal:
Living: with family
Phy Exam
Physical Exam
Physical Exam:
General: Awake, Alert, Oriented X3. No acute distress.
Vitals: unremarkable
Head: Abrasion, ecchymosis left forehead
Eyes: Pupils equal, EOMI
Throat: Airway intact, no exudates
Neck: Trachea midline
Lungs: Clear and equal b/l
Heart: Regular rate, no murmurs
Abd: Soft, Nontender, No pulsatile mass
Neuro: Cranial nerves intact, muscle strength equal bilaterally
Skin: Warm, dry, no rash
Extremities: pulses equal b/l, no edema. Pain to palpation diffusely left proximal hand and wrist. Abrasion noted to her index finger. Range of motion intact in the bilateral knees and hips.
Course
Orders/Labs/Results
Orders:
Orders
06/25/25 20:54
CT Cervical Spine W/o Iv Contr Urgent
Reason For Exam: fall neck pain
CT Head W/o Iv Contrast Urgent
Comment:
Reason For Exam: fall
CR Wrist - Left Min 3 Views Urgent
Comment:
Reason For Exam: fall, wrist pain
Knee, Left 4 or More Views [CR Knee - Left 4 Or More View*] Urgent
Comment:
Reason For Exam: fall , knee pain
06/25/25 21:32
Ibuprofen [Motrin] 400 mg PO NOW STA
Vital Signs
Initial and Last Documented VS:
Initial Vital Signs
Temp Pulse Resp BP Pulse Ox
98.5 F 70 20 137/75 96
06/25/25 20:42 06/25/25 20:42 06/25/25 20:42 06/25/25 20:42 06/25/25 20:42
Last Documented Vital Signs
Temp Pulse Resp BP Pulse Ox
98.5 F 70 20 137/75 96
06/25/25 20:42 06/25/25 20:42 06/25/25 20:42 06/25/25 20:42 06/25/25 21:34
MDM/Problems Addressed
Differential Diagnosis Includes:
Subdural, scalp contusion, wrist fracture, cervical spine injury
MDM/Problems Addressed:
CT showed no acute head or neck traumatic injury. Plain films of wrist and knee show no acute fracture. Tetanus updated. Tylenol or ibuprofen for analgesia.
*Radiology
Radiology exam reviewed: preliminary read by ED provider (No fracture noted of the near wrist on my review) and radiology read reviewed
*Pulse Oximetry
SaO2: 96
Oxygen Mode of Delivery: Room air
Patient hypoxic: no
*Critical Care Note
Total Time (30-74mins, 75-104mins- exclusive of procedures): Not Applicable
ED Attending Note
-
Portions of this chart may have been created with voice recognition software.� Occasional wrong word or��sound alike� substitutions may have occurred due to the inherent limitations of voice recognition software.
Discharge Plan
Departure
Patient Disposition: Home (Routine Discharge)
Date of Disposition: 06/25/25
Time of Disposition: 22:02
Patient with high blood pressure during this ER visit?: No
Condition: Good
Discharge Problem:
Fall, Head injury, Abrasion hand, Cervical strain, acute
Instructions: Concussion, Adult (DC), Skin Abrasions (DC), Cervical Sprain ED
Prescriptions:
No Action
valacyclovir 500 MG tablet
500 mg PO DAILYPRN PRN (Reason: cold sores)
acetaminophen [Tylenol Extra Strength] 500 MG tablet
1,000 mg PO Q6HPRN PRN (Reason: mild pain)
losartan 25 MG tablet
50 mg PO DAILY
pantoprazole 40 mg Tablet,Delayed Release (Dr/Ec)
40 mg PO DAILY
mirabegron [Myrbetriq] 50 mg Tablet Extended Release 24 Hr
50 mg PO DAILY
cholecalciferol (vitamin D3) [Vitamin D3] 25 mcg (1,000 unit) Capsule
25 mcg PO DAILY
methenamine hippurate 1 gram Tablet
1 g PO BID
alprazolam 0.25 mg Tablet
0.25 mg PO DAILY PRN (Reason: anxiety)
ascorbic acid (vitamin C) [Vitamin C] 500 mg Tablet
500 mg PO DAILY
hydroxyzine HCl 10 mg Tablet
30 mg PO HS
dicyclomine [Bentyl] 10 mg Capsule
20 mg PO TID PRN (Reason: cramping)
alfuzosin 10 mg Tablet Extended Release 24 Hr
10 mg PO DAILY
Centrum Silver 0.4 mg-300 mcg- 250 mcg Tablet
1 tab PO DAILY
pravastatin 10 mg Tablet
30 mg PO HS
cyanocobalamin (vitamin B-12) [Vitamin B-12] 2,500 mcg Tablet, Sublingual
2,500 mcg PO DAILY
phenazopyridine 200 mg Tablet
200 mg PO TID
Theracran 650 mg Capsule
650 mg PO DAILY
Trulance 3 mg Tablet
3 mg PO PRN PRN (Reason: CONSTIPATION)
Referrals:
UNKNOWN - PT DOES,NOT KNOW [Unknown Provider]
Interventions
Interventions:
*Risk Screen - Suicide Last Done: 06/25/25 20:42
*General Assessment Last Done: 06/25/25 20:42
*Neglect/Abuse Screening Last Done: 06/25/25 20:42
*ED- Fall Risk Assessment Last Done: 06/25/25 20:42
*ED COVID-19 Vaccine History Last Done: 06/25/25 20:42
*Nursing Disposition Last Done: 06/25/25 23:14
ED-Musculoskeletal Assessment Last Done: 06/25/25 23:14
ED- Neurological Assessment Last Done: 06/25/25 23:14
ED-Skin Assessment Last Done: 06/25/25 23:14
Discharge Date and Time
Discharge Date/Time: 06/25/25 23:15
Print Language: ROMANIAN
[2025-06-25] MEDS: MOTRIN 400 MG PO (21:36)
== END 2025-06-25 23:15 | disposition home or self-care (01) ==
LOC: EMR 20:33
PROVIDERS: EMERGENCY PHYSICIAN Emergency Medicine; FAMILY PHYSICIAN Internal Medicine Geriatric Medicine
DX: S16.1XXA Strain of muscle, fascia and tendon at neck level, initial encounter (principal); S00.83XA Contusion of other part of head, initial encounter; S60.411A Abrasion of left index finger, initial encounter; S00.81XA Abrasion of other part of head, initial encounter; M25.532 Pain in left wrist; M25.562 Pain in left knee; W01.0XXA Fall on same level from slipping, tripping and stumbling without subsequent striking against object, initial encounter; E78.00 Pure hypercholesterolemia, unspecified; I10 Essential (primary) hypertension; J45.909 Unspecified asthma, uncomplicated; Z87.891 Personal history of nicotine dependence
CPT/HCPCS: 99284; 70450; 72125; 73110; 73564

== ENCOUNTER 2025-06-28 15:02 | Outpatient (RCR) | payer OTHER, SELFPAY | END 2025-06-28 23:59 | disposition home or self-care (01) | LOC: RPT 15:02 | PROVIDERS: ATTENDING PHYSICIAN Nurse Practitioner Family; FAMILY PHYSICIAN Internal Medicine Geriatric Medicine | DX: M25.561 Pain in right knee (principal); Z73.6 Limitation of activities due to disability; R26.89 Other abnormalities of gait and mobility; M62.81 Muscle weakness (generalized); G35 Multiple sclerosis; G89.29 Other chronic pain; Z91.81 History of falling | CPT/HCPCS: 97110; 97112; 97162; 97530; 97535 ==

== ENCOUNTER → 2025-07-05 12:59 | Outpatient (REF) | payer OTHER, SELFPAY ==
[2025-07-05 16:18] LABS: Urine Character Slightly Cloudy (Clear)
[2025-07-05 18:39] LABS: Urine Squamous Cell 0-2 /LPF (Few)
[2025-07-05 18:40] LABS: Urine White Cell 21-25 /HPF (0-5)
== END ==
LOC: REG 12:59
PROVIDERS: ATTENDING PHYSICIAN Obstetrics & Gynecology; FAMILY PHYSICIAN Internal Medicine Geriatric Medicine
DX: N39.0 Urinary tract infection, site not specified (principal)
CPT/HCPCS: 81003; 81015; 87077; 87086; 87186

== ENCOUNTER 2025-07-24 11:37 | Outpatient (RCR) | payer OTHER, SELFPAY | END 2025-07-24 23:59 | disposition home or self-care (01) | LOC: RPT 11:37 | PROVIDERS: ATTENDING PHYSICIAN Nurse Practitioner Family; FAMILY PHYSICIAN Internal Medicine Geriatric Medicine | DX: M25.561 Pain in right knee (principal); Z73.6 Limitation of activities due to disability; R26.89 Other abnormalities of gait and mobility; M62.81 Muscle weakness (generalized); G35 Multiple sclerosis; G89.29 Other chronic pain; Z91.81 History of falling | CPT/HCPCS: 97110; 97112; 97116; 97535 ==

== ENCOUNTER → 2025-08-09 11:47 | Outpatient (REF) | payer OTHER, SELFPAY | LOC: OLABPV 11:47 | PROVIDERS: ATTENDING PHYSICIAN Internal Medicine Geriatric Medicine | DX: I10 Essential (primary) hypertension (principal); H35.3212 Exudative age-related macular degeneration, right eye, with inactive choroidal neovascularization; E78.5 Hyperlipidemia, unspecified; M81.0 Age-related osteoporosis without current pathological fracture; E66.3 Overweight | CPT/HCPCS: 36415; 84155; 84165 ==

== ENCOUNTER → 2025-08-22 13:57 | Outpatient (REF) | payer OTHER, SELFPAY | LOC: HWRCS 13:57 | PROVIDERS: ATTENDING PHYSICIAN Internal Medicine Cardiovascular Disease; FAMILY PHYSICIAN Internal Medicine Geriatric Medicine | DX: R55 Syncope and collapse (principal) | CPT/HCPCS: 93306 ==

== ENCOUNTER 2025-09-23 10:01 | Outpatient (RCR) | payer OTHER, SELFPAY | END 2025-09-23 23:59 | disposition home or self-care (01) | LOC: RPT 10:01 | PROVIDERS: ATTENDING PHYSICIAN Nurse Practitioner Family; FAMILY PHYSICIAN Internal Medicine Geriatric Medicine | DX: M25.561 Pain in right knee (principal); Z73.6 Limitation of activities due to disability; R26.89 Other abnormalities of gait and mobility; M62.81 Muscle weakness (generalized); G35.D Multiple sclerosis, unspecified; W19.XXXD Unspecified fall, subsequent encounter; G35 Multiple sclerosis; G89.29 Other chronic pain; Z96.652 Presence of left artificial knee joint; Z91.81 History of falling | CPT/HCPCS: 97110; 97112; 97530 ==

== ENCOUNTER 2025-10-07 13:01 | Outpatient (RCR) | payer OTHER, SELFPAY | END 2025-10-07 23:59 | disposition home or self-care (01) | LOC: RPT 13:01 | PROVIDERS: ATTENDING PHYSICIAN Nurse Practitioner Family; FAMILY PHYSICIAN Internal Medicine Geriatric Medicine | DX: M25.561 Pain in right knee (principal); Z73.6 Limitation of activities due to disability; R26.89 Other abnormalities of gait and mobility; G35.D Multiple sclerosis, unspecified; W19.XXXD Unspecified fall, subsequent encounter; Z96.652 Presence of left artificial knee joint; M62.81 Muscle weakness (generalized); G89.29 Other chronic pain; G35 Multiple sclerosis; Z91.81 History of falling | CPT/HCPCS: 97110; 97112; 97530 ==